=== PATIENT | female | born 1945 | race African-American/Black ===

== ENCOUNTER 2018-07-22 19:31 | Emergency (ER) | payer OTHER ==
[~2018-07-22] VITALS: Ht 172.7 cm; Wt 69.0 kg
[2018-07-22] MEDS ORDERED: IBUPROFEN 400MG TABLET PO ONE (23:00)
[2018-07-22] MEDS ORDERED: DIPHENHYDRAMINE 25MG CAPSULE PO ONE (23:00)
[2018-07-22 23:49] VITALS: BP 164/83
== END 2018-07-22 23:51 | disposition home or self-care (01) ==
LOC: ER 19:31
DX: B02.9 Zoster without complications (principal); I10 Essential (primary) hypertension; E11.9 Type 2 diabetes mellitus without complications; Z79.899 Other long term (current) drug therapy
CPT/HCPCS: 99283; Q0163